=== PATIENT | female | born 1945 | race Caucasian/White ===

== ENCOUNTER → 2024-11-07 | Outpatient (CLI) | payer OTHER, SELFPAY ==
--- NOTE | 2024-11-07 14:30 | XR_ITS ---
Examination: Carotid arterial duplex scan, ultrasound. Date and time of exam: November 07, 2024 1503 hours INDICATIONS: Constant headaches one month, diagnosis occlusion stenosis left carotid artery Technique: Multiple sonographic images have been obtained of the carotid arteries and vertebral arteries, B-mode/grayscale imaging and Doppler spectral analysis and color flow Peak systolic and diastolic velocities have been recorded. Systolic diastolic ratios have been calculated. Findings: Right peak systolic velocities: Distal internal carotid artery peak systolic velocity is 1.3 M/sec Proximal internal carotid artery peak systolic velocity is 1.0 M/sec Carotid bifurcation peak systolic velocity is 0.8 M/sec External carotid artery peak systolic velocity is 1.5 M/sec Vertebral artery flow is antegrade. Left peak systolic velocities: Distal internal carotid artery peak systolic velocity is 1.0 M/sec Proximal internal carotid artery peak systolic velocity is 0.8 M/sec Carotid bifurcation peak systolic velocity is 0.8 M/sec External carotid artery peak systolic velocity is 1.4 M/sec Vertebral artery flow is antegrade Doppler waveform analysis demonstrates no spectral broadening Impression: Right internal carotid artery demonstrates 0-10% stenosis. Left internal carotid artery demonstrates 0-10% stenosis.
== END | disposition home or self-care (01) ==
PROVIDERS: PCP Nurse Practitioner Family; Referring Provider Family Medicine; Visit Provider Family Medicine
DX: I65.22 Occlusion and stenosis of left carotid artery (principal)
CPT/HCPCS: 93880

== ENCOUNTER → 2025-02-17 | Outpatient (CLI) | payer OTHER, SELFPAY ==
[2025-02-17 12:00] LABS: Basophils % (Auto) 1 % (0-2.5); Eosinophils # (Auto) 0.3 Thou/mm3 (0.0-0.5); Eosinophils % (Auto) 7 % (0-10); Hematocrit 33.4 % (36.0-46.0); Hemoglobin 11.7 g/dL (12.0-16.0); Immature Granulocytes % (Auto) 0 % (0-0); Immature Granulocytes Auto 0.01 Thou/mm3 (0.00-0.00); Lymphocytes # (Auto) 1.5 Thou/mm3 (1.0-4.8); Lymphocytes % (Auto) 37 % (10-50); Mean Corpuscular Hemoglobin 31.1 pg (25.0-35.0); Mean Corpuscular Volume 89 fL (80-100); Monocytes # (Auto) 0.4 Thou/mm3 (0.0-0.8); Monocytes % (Auto) 10 % (0-12); Neutrophils # (Auto) 1.9 Thou/mm3 (1.8-7.7); Neutrophils % (Auto) 46 % (37-80); Nucleated Red Blood Cell % 0 /100 WBC (0); Platelet Count 270 Thou/mm3 (140-440); RDW Standard Deviation 38.5 fL (36.4-46.3); Red Blood Count 3.76 Miln/mm3 (4.00-5.20); White Blood Count 4.2 Thou/mm3 (3.6-11.0)
[2025-02-17 12:11] LABS: Glucose Estimated Average 123 mg/dL (80-131); Hemoglobin A1C 5.9 % Hgb (4.8-6.0); T4 (Thyroxine) 4.1 mcg/dL (4.5-10.9)
[2025-02-17 12:23] LABS: Alanine Aminotransferase 14 U/L (10-49); Albumin, Serum 4.6 gm/dL (3.4-4.8); Albumin/Globulin Ratio 1.9 (1.2-2.2); Alkaline Phosphatase 45 U/L (46-116); Anion Gap 9 (7-16); Aspartate Amino Transferase 21 U/L (0-34); BUN/Creatinine Ratio 32 Ratio (12-20); Bilirubin,Total 0.5 mg/dL (0.3-1.2); Blood Urea Nitrogen 32 mg/dL (9-23); Carbon Dioxide 25.4 mMol/L (20.0-31.0); Cardiac Risk Estimate 5.9 RATIO (3.7-5.6); Chloride 101 mMol/L (98-107); Cholesterol 190 mg/dL (132-200); Globulin 2.4 gm/dL (2.3-3.5); Glucose 122 mg/dL (74-106); HDL Cholesterol 32 mg/dL (40-60); LDL Cholesterol,Calculated 109 mg/dL (0-130); Osmolality,Calculated 278 (275-295); Potassium 4.1 mMol/L (3.4-5.1); Sodium 135 mMol/L (136-145); Thyroid Stimulating Hormone 2.54 uIU/mL (0.55-4.78); Triglycerides 244 mg/dL (30-150); eGFR 58 See Note
[2025-02-17 14:16] LABS: Creatinine MALB Rnd Ur 41 mg/dL (30-125); Microalbumin Creat Ratio 117 mg/gCrea (<30); Microalbumin, Random Urine 48 mg/L (0-300)
[2025-02-24 06:55] LABS: Thyroid Peroxidase Antibodies* 2 IU/mL (<9)
== END | disposition home or self-care (01) ==
LOC: COPL 11:15
PROVIDERS: PCP Family Medicine; Referring Provider Nurse Practitioner Family; Visit Provider Nurse Practitioner Family
DX: E03.9 Hypothyroidism, unspecified (principal); E78.5 Hyperlipidemia, unspecified; I10 Essential (primary) hypertension
CPT/HCPCS: 36415; 80053; 80061; 82043; 82570; 83036; 84436; 84443; 85025; 86376

== ENCOUNTER → 2025-03-17 | Outpatient (CLI) | payer OTHER, SELFPAY ==
--- NOTE | 2025-03-17 13:30 | XR_ITS ---
Examination: Screening digital mammography, bilateral Computer aided detection 3-D breast Tomosynthesis, bilateral Date and time of exam: March 17, 2025 at 1332 hrs. Compared to mammograms dating to October 23, 2050 Indication: Screening Technique: Nonmagnified MLO, CC views of the breasts to been obtained, reconstructed from 3-D Tomosynthesis images. R2 computer aided detection program utilized for evaluation of suspicious masses and/or abnormal calcifications. 3-D Tomosynthesis images obtained. Findings: Scattered areas of fibroid rather density. Benign calcifications. No interval suspicious masses Impression: BI-RADS category II: Benign Findings. Recommend 1 year follow-up mammogram.
== END | disposition home or self-care (01) ==
LOC: CDIM 13:09
PROVIDERS: Referring Provider Nurse Practitioner Family; Visit Provider Nurse Practitioner Family
DX: Z12.31 Encounter for screening mammogram for malignant neoplasm of breast (principal); R92.323 Mammographic fibroglandular density, bilateral breasts; R92.1 Mammographic calcification found on diagnostic imaging of breast
CPT/HCPCS: 77063; 77067

== ENCOUNTER → 2025-07-03 | Outpatient (CLI) | payer OTHER, SELFPAY ==
[2025-07-03 13:30] LABS: Basophils # (Auto) 0.0 Thou/mm3 (0.0-0.2); Basophils % (Auto) 1 % (0-2.5); Eosinophils # (Auto) 0.4 Thou/mm3 (0.0-0.5); Eosinophils % (Auto) 10 % (0-10); Hematocrit 33.8 % (36.0-46.0); Hemoglobin 11.5 g/dL (12.0-16.0); Immature Granulocytes Auto 0.00 Thou/mm3 (0.00-0.00); Lymphocytes # (Auto) 1.1 Thou/mm3 (1.0-4.8); Lymphocytes % (Auto) 28 % (10-50); Mean Corpuscular HGB Conc 34.0 g/dl (31.0-37.0); Mean Corpuscular Hemoglobin 30.8 pg (25.0-35.0); Mean Corpuscular Volume 91 fL (80-100); Monocytes # (Auto) 0.4 Thou/mm3 (0.0-0.8); Monocytes % (Auto) 10 % (0-12); Neutrophils # (Auto) 2.0 Thou/mm3 (1.8-7.7); Neutrophils % (Auto) 51 % (37-80); Nucleated Red Blood Cell # 0.00 Thou/mm3 (0.00-0.00); Nucleated Red Blood Cell % 0 /100 WBC (0); Platelet Count 282 Thou/mm3 (140-440); RDW Standard Deviation 39.3 fL (36.4-46.3); Red Blood Count 3.73 Miln/mm3 (4.00-5.20); White Blood Count 3.8 Thou/mm3 (3.6-11.0)
[2025-07-03 13:37] LABS: Albumin, Serum 4.8 gm/dL (3.4-4.8); Anion Gap 10 (7-16); BUN/Creatinine Ratio 22 Ratio (12-20); Blood Urea Nitrogen 22 mg/dL (9-23); Calcium 10.0 mg/dL (8.3-10.6); Calcium (Corrected) 10.0 mg/dL (8.5-10.1); Carbon Dioxide 24.5 mMol/L (20.0-31.0); Chloride 100 mMol/L (98-107); Creatinine (Component) 1.0 mg/dL (0.6-1.3); Glucose 130 mg/dL (74-106); Osmolality,Calculated 273 (275-295); Phosphorous 3.5 mg/dL (2.4-5.1); Potassium 4.6 mMol/L (3.4-5.1); Sodium 134 mMol/L (136-145); eGFR 58 See Note
[2025-07-03 13:43] LABS: Vitamin D 25 Hydroxy Total 58.0 ng/mL (7.3-40.2)
[2025-07-03 14:14] LABS: Collection Type, Urine Clean Catch
[2025-07-03 14:53] LABS: Creatinine,Random Urine 46 mg/dL (30-125); Protein Total, Random Urine 23 mg/dL (1-14)
[2025-07-03 15:03] LABS: Bacteria,Urine Rare; Bilirubin,Urine Negative (Negative); Blood,Urine Trace (Negative); Clarity,Urine Clear (Clear/Hazy); Color,Urine Lt-Yellow (Lt Yel-Yel); Glucose, Urine Negative (Negative); Ketones,Urine Negative (Negative); Leukocyte Esterase,Urine Positive (Negative); Nitrite,Urine Negative (Negative); PH,Urine 6.0 (5.0-7.0); Protein,Urine Negative (Neg - Trace); RBC,Urine 2 /hpf (0-3); Specific Gravity,Urine 1.009 (1.001-1.035); Squamous Epithelial Cell,Urine 3 /hpf (0-5); Urobilinogen,Urine Negative mg/dL (0.0-1.0); WBC,Urine 40 /hpf (0-5)
== END | disposition home or self-care (01) ==
LOC: COPL 12:42
PROVIDERS: PCP Family Medicine; Referring Provider Internal Medicine; Visit Provider Internal Medicine
DX: I12.9 Hypertensive chronic kidney disease with stage 1 through stage 4 chronic kidney disease, or unspecified chronic kidney disease (principal); E11.22 Type 2 diabetes mellitus with diabetic chronic kidney disease; N18.31 Chronic kidney disease, stage 3a
CPT/HCPCS: 36415; 80069; 81001; 82306; 82570; 84156; 85025

== ENCOUNTER → 2025-08-04 | Outpatient (CLI) | payer OTHER, SELFPAY ==
--- NOTE | 2025-08-04 16:00 | XR_ITS ---
Examination: Retroperitoneal ultrasound, complete Technique: Multiple high resolution grayscale images of the retroperitoneum obtained, including kidneys and bladder. Exam date and time:August 04, 2025 1541 hours INDICATIONS: Chronic kidney disease stage III with painful urination the last 2 days FINDINGS: Right kidney 10.3 cm cortex 1.4 cm Left kidney 8.1 cm cortex 1.3 cm 9.2 cm cyst lower pole left kidney Moderate bilateral renal parenchymal scar formation, no hydronephrosis No bladder mass or bladder calculi Bladder prevoid volume 198 cc IMPRESSION: Small left kidney Bilateral renal cortical thinning 9.2 cm lower pole left renal cyst Moderate bilateral renal parenchymal scar formation
== END | disposition home or self-care (01) ==
PROVIDERS: PCP Family Medicine; Referring Provider Internal Medicine; Visit Provider Internal Medicine
DX: N28.1 Cyst of kidney, acquired (principal); N28.89 Other specified disorders of kidney and ureter; N18.31 Chronic kidney disease, stage 3a
CPT/HCPCS: 76770

== ENCOUNTER → 2025-08-21 | Outpatient (CLI) | payer OTHER, SELFPAY ==
[2025-08-21 14:54] LABS: Cardiac Risk Estimate 4.7 RATIO (3.7-5.6); Cholesterol 163 mg/dL (132-200); HDL Cholesterol 35 mg/dL (40-60); LDL Cholesterol,Calculated 93 mg/dL (0-130); Triglycerides 177 mg/dL (30-150)
== END | disposition home or self-care (01) ==
LOC: COPL 13:41
PROVIDERS: PCP Nurse Practitioner Family; Referring Provider Nurse Practitioner Family; Visit Provider Nurse Practitioner Family
DX: E78.5 Hyperlipidemia, unspecified (principal)
CPT/HCPCS: 36415; 80061

== ENCOUNTER → 2025-11-03 | Outpatient (CLI) | payer OTHER, SELFPAY ==
[2025-11-03 13:32] LABS: Basophils # (Auto) 0.1 Thou/mm3 (0.0-0.2); Basophils % (Auto) 1 % (0-2.5); Eosinophils # (Auto) 0.3 Thou/mm3 (0.0-0.5); Eosinophils % (Auto) 7 % (0-10); Hematocrit 34.7 % (36.0-46.0); Hemoglobin 11.7 g/dL (12.0-16.0); Immature Granulocytes Auto 0.01 Thou/mm3 (0.00-0.00); Lymphocytes # (Auto) 1.6 Thou/mm3 (1.0-4.8); Lymphocytes % (Auto) 36 % (10-50); Mean Corpuscular HGB Conc 33.7 g/dl (31.0-37.0); Mean Corpuscular Hemoglobin 30.7 pg (25.0-35.0); Mean Corpuscular Volume 91 fL (80-100); Monocytes # (Auto) 0.3 Thou/mm3 (0.0-0.8); Monocytes % (Auto) 8 % (0-12); Neutrophils # (Auto) 2.1 Thou/mm3 (1.8-7.7); Neutrophils % (Auto) 47 % (37-80); Nucleated Red Blood Cell # 0.00 Thou/mm3 (0.00-0.00); Nucleated Red Blood Cell % 0 /100 WBC (0); Platelet Count 287 Thou/mm3 (140-440); RDW Standard Deviation 41.0 fL (36.4-46.3); Red Blood Count 3.81 Miln/mm3 (4.00-5.20); White Blood Count 4.3 Thou/mm3 (3.6-11.0)
[2025-11-03 13:59] LABS: Glucose Estimated Average 137 mg/dL (80-131); Hemoglobin A1C 6.4 % Hgb (4.8-6.0)
[2025-11-03 14:01] LABS: Alanine Aminotransferase 12 U/L (10-49); Albumin, Serum 5.0 gm/dL (3.4-4.8); Albumin/Globulin Ratio 1.7 (1.2-2.2); Alkaline Phosphatase 48 U/L (46-116); Anion Gap 11 (7-16); Aspartate Amino Transferase 20 U/L (0-34); BUN/Creatinine Ratio 33 Ratio (12-20); Bilirubin,Total 0.3 mg/dL (0.3-1.2); Blood Urea Nitrogen 33 mg/dL (9-23); Calcium 10.3 mg/dL (8.3-10.6); Calcium (Corrected) 10.3 mg/dL (8.5-10.1); Carbon Dioxide 22.1 mMol/L (20.0-31.0); Cardiac Risk Estimate 4.8 RATIO (3.7-5.6); Chloride 108 mMol/L (98-107); Cholesterol 169 mg/dL (132-200); Creatinine (Component) 1.0 mg/dL (0.6-1.3); Globulin 3.0 gm/dL (2.3-3.5); Glucose 122 mg/dL (74-106); HDL Cholesterol 35 mg/dL (40-60); LDL Cholesterol,Calculated 97 mg/dL (0-130); Osmolality,Calculated 289 (275-295); Potassium 4.7 mMol/L (3.4-5.1); Sodium 141 mMol/L (136-145); Thyroid Stimulating Hormone 2.07 uIU/mL (0.55-4.78); Total Protein 8.0 gm/dL (5.7-8.2); Triglycerides 185 mg/dL (30-150); eGFR 58 See Note
[2025-11-03 19:53] LABS: Amphetamine/Methamp Scrn,U Negative (Negative); Barbiturate Screen,Urine Negative (Negative); Benzodiazepines Screen,Urine Negative (Negative); Benzoylecgonine Screen, Ur Negative (Negative); Fentanyl Screen,Urine Negative (Negative); Opiate Screen,Urine Positive (Negative); THC Screen,Urine Negative (Negative)
== END | disposition home or self-care (01) ==
LOC: COPL 12:37
PROVIDERS: PCP Student in an Organized Health Care Education/Training Program; Referring Provider Student in an Organized Health Care Education/Training Program; Visit Provider Student in an Organized Health Care Education/Training Program
DX: I12.9 Hypertensive chronic kidney disease with stage 1 through stage 4 chronic kidney disease, or unspecified chronic kidney disease (principal); E11.22 Type 2 diabetes mellitus with diabetic chronic kidney disease; N18.9 Chronic kidney disease, unspecified; E11.65 Type 2 diabetes mellitus with hyperglycemia; M54.50 Low back pain, unspecified
CPT/HCPCS: 36415; 80053; 80061; 80307; 83036; 84443; 85025